=== PATIENT | male | born 1965 | race African-American/Black ===

== ENCOUNTER 2020-06-24 16:04 | Emergency (ER) | payer OTHER, SELFPAY ==
[2020-06-24] VITALS (8 sets, daily range): BP systolic 124–168; BP diastolic 70–95; PULSE 70–94; RESP 12–20; TEMP 36.1–36.7; O2SAT 97–100
--- NOTE | ~2020-06-24 | XR_ITS ---
EXAMINATION: XR chest 2V EXAM DATE: 06/24/2020 17:18 INDICATION: Hypertension, mid chest pain, left shoulder pain. TECHNIQUE: Frontal and lateral projections of the chest obtained and reviewed. There is no prior theo dy for comparison. FINDINGS: The lungs are clear. There are no pleural effusions. The cardiomediastinal silhouette is within normal limits. There is no pneumothorax suspected. The bones and soft tissues are unremarkab le. IMPRESSION: No acute cardiopulmonary findings. Reviewed, dictated and finalized at location A.
--- NOTE | 2020-06-24 16:12 | ECG_ITS ---
Measurements Intervals [place] Rate: 92 P: 44 MD: 154 QRS: -27 QRSD: 76 T: 28 QT: 327 QTc: 406 Interpretive Statements SINUS RHYTHM EARLY PRECORDIAL R/S TRANSITION NONSPECIFIC T-WAVE ABNORMALITY- INF/LAT LEADS BORDERLINE ECG Electronically Signed On 06-24-2020 17:27:33 CDT by Wilfredo Robles D.O.
[2020-06-24 16:27] LABS: Basophils Absolute Auto 0.1 K/mm3 (0.0-0.1); Eosinophils Absolute Auto 0.3 K/mm3 (0-0.3); Eosinophils Percent Auto 2.9 % (0-4.4); Hematocrit 45.1 % (42.0-52.0); Hemoglobin 15.6 g/dL (14.0-18.0); Immature Granulocyte Absolute 0.04 K/mm3 (0.00-0.031); Immature Granulocyte Percent A 0.4 % (0-0.5); Lymphocytes Percent Auto 34.3 % (18.3-44.2); Mean Corpuscular HGB Conc 34.6 g/dl (32-36); Mean Corpuscular Volume 89.5 fl (80-100); Mean Platelet Volume 10.4 fl (7.4-10.4); Monocytes Absolute Auto 1.1 K/mm3 (0.1-0.6); Monocytes Percent Auto 11.7 % (2.6-8.5); Neutrophils Absolute Auto 4.6 K/mm3 (1.3-6.7); Neutrophils Percent Auto 49.7 % (45.5-73.1); Platelet Count Result 250 k/mm3 (150-375); Red Blood Count 5.04 M/mm3 (4.6-6.20); Red Cell Distribution Width 12.5 % (11.5-14.5); White Blood Count 9.3 K/mm3 (4.5-10.0)
[2020-06-24 16:36] LABS: Potassium 4.2 mmol/L (3.4-5.0)
[2020-06-24 16:37] LABS: Prothrombin Time 13.1 Seconds (11.1-14.7)
[2020-06-24 16:38] LABS: Anion Gap 7 mmol/L (8-16); Blood Urea Nitrogen 17 mg/dL (9-20); Calcium 9.4 mg/dL (8.4-10.2); Carbon Dioxide 30 mmol/L (22-30); Chloride 104 mmol/L (98-107); Estimated CRCL calculation 67 ml/min; Estimated Glomerular Filt Rate > 60; Glucose 96 mg/dL (75-110); Partial Thromboplastin Time 26.1 SECONDS (22.3-36.8); Sodium 141 mmol/L (137-145)
[2020-06-24 16:50] LABS: Troponin I < 0.012 ng/mL (0.000-0.034)
[2020-06-24 19:24] LABS: Troponin I < 0.012 ng/mL (0.000-0.034)
--- NOTE | 2020-06-24 19:51 | ED.CHESTPAIN ---
HPI - Chest Pain General Chief Complaint: Chest Pain Stated Complaint: chest pain/elevated bp Time Seen by Provider: 06/24/20 16:30 Source: patient and family Mode of arrival: ambulatory Limitations: no limitations History of Present Illness HPI narrative: 55-year-old with a history of hypertension, gout, hyperlipidemia here with complaints of back pain and midsternal pain on and off for past few weeks. Patient states that approximately week or 10 days ago he was trying to reach something from the drawer had a sudden onset of back pain mostly on the left interscapular area for which she took ibuprofen which helped with the pain however the pain was lingering he was seen at the urgent care and was given Flexeril which he finished it yesterday. Patient states that he was at work this morning was having midsternal pain. States the pain by the time he came to the ER subsided. He wanted to make sure that this is nothing cardiac. Patient denies any previous coronary artery disease. MD complaint: chest pain Timing of current episode: now resolved Pain location: parasternal Pain radiation: none Quality: aching Relieving factors: nothing Risk Factors Coronary artery disease risk factors: hyperlipidemia and hypertension Related Data Home Medications Medication Instructions Recorded Confirmed allopurinol 06/24/20 atorvastatin 06/24/20 diltiazem HCl PO 06/24/20 lisinopril-hydrochlorothiazide tablet 06/24/20 Allergies Allergy/AdvReac Type Severity Reaction Status Date / Time No Known Allergies Allergy Verified 06/24/20 17:08 Review of Systems Review of Systems: All systems reviewed & are unremarkable except as noted in HPI and below Constitutional: Constitutional: Reports no additional constitutional complaints Eyes: Eyes: Reports no additional eye complaints ENT: Reports as per HPI Cardiovascular: Cardiovascular: Reports no additional cardiovascular complaints Respiratory: Respiratory: Reports no additional respiratory complaints Gastrointestinal: Gastrointestinal: Reports no additional gastrointestinal complaints Musculoskeletal: Musculoskeletal: Reports no additional musculoskeletal complaints Neurologic: Reports system reviewed and no additional complaints, except as documented PMFSH Social History Social History Gender identity (if verbalized by the patient): Male Exam Narrative: Exam Narrative: GENERAL: Well-appearing, well-nourished, and in no acute distress. HEAD: Normocephalic, atraumatic. EYES: PERRLA and EOMI. ENT: Nares clear, no rhinorrhea or epistaxis. Mucous membranes moist. NECK: Supple. CHEST: Clear to auscultation. No respiratory distress. Pain is reproducible upon palpation in the left interscapular area. HEART: Regular rate and rhythm. No murmur heard. Normal peripheral pulses. ABDOMEN: Soft, nontender, nondistended, normal active bowel sounds. EXTREMITIES: Normal range of motion. No edema. SKIN: Warm, dry, no rash. NEURO: No focal deficits. Alert and oriented x3. PSYCH: Normal mood and affect. Course Course Emergency Course: Patient had no further episodes of chest pain here in the ER lab work EKG were all normal. This time his pain most appears to be more musculoskeletal origin advised him to continue his home medication, follow-up with his doctor Vital Signs Vital signs: Vital Signs Temperature 36.1 C L 06/24/20 16:13 Pulse Rate 94 06/24/20 16:13 Respiratory Rate 18 06/24/20 16:13 Blood Pressure 168/95 H 06/24/20 16:13 Pulse Oximetry 99 06/24/20 16:13 Temperature 36.1 C L 06/24/20 16:13 Pulse Rate 70 06/24/20 18:45 Respiratory Rate 12 06/24/20 18:45 Blood Pressure 148/82 H 06/24/20 18:45 Pulse Oximetry 99 06/24/20 18:46 MDM - Chest Pain Differential Diagnosis Differential diagnosis: Likely stable angina, costochondritis and chest pain Lab Data Result diagrams: 06/24/20 16:20
== END 2020-06-24 20:12 | disposition home or self-care (01) ==
PROVIDERS: Emergency Provider Family Medicine; PCP Physician Assistant
DX: R07.2 Precordial pain (principal); I10 Essential (primary) hypertension; E78.5 Hyperlipidemia, unspecified; M10.9 Gout, unspecified; R94.31 Abnormal electrocardiogram [ECG] [EKG]
CPT/HCPCS: 36415; 71046; 80048; 84484; 85025; 85610; 85730; 93005; 99284

== ENCOUNTER 2024-12-02 13:49 | Outpatient (CLI) | payer OTHER, SELFPAY ==
--- NOTE | ~2024-12-02 | XR_ITS ---
Clinical Indication: Cough PA and lateral views of the chest: Comparison: 06/24/2020 Findings: The lungs are clear, without evidence of focal consolidation or pleural effusion. Cardiome diastinal silhouette is within normal limits. Bones and soft tissues are unremarkable. Impression: Normal chest. Reviewed, dictated and finalized at [facility]. Impression: Normal chest.
== END 2024-12-02 13:50 | disposition home or self-care (01) ==
PROVIDERS: PCP Physician Assistant; Visit Provider Physician Assistant
DX: R05.9 Cough, unspecified (principal)
CPT/HCPCS: 71046